=== PATIENT | female | born 1960 | race Caucasian/White ===

== ENCOUNTER 2017-01-22 12:21 | Emergency (ER) | payer BC ==
--- NOTE | 2017-01-22 12:39 | ERNOTE ---
Medical Problem HPI - Narrative Date of Service: 01/22/17 - General Chief Complaint: General Assessment Time Seen by Provider: 01/22/17 12:37 Source: patient, RN notes reviewed Exam Limitations: no limitations - Immun/Allergies/Home Medications Immunizations: IMMUNIZATION HX History of Influenza Vaccine Yes Hx Pneumococcal Vaccination No Allergies/Adverse Reactions: Allergies No Known Allergies Allergy (Unverified 01/22/17 12:31) Home Medications: HOME MEDICATIONS Carvedilol [Coreg] 6.25 mg PO BID 01/22/17 [Last Taken Unknown] Codeine Phosphate/Guaifenesin [Guaifenesin-Codeine Syrup] 10 ml PO Q4H PRN #120 ml 01/22/17 [Last Taken Unknown] Flecainide Acetate [Tambocor] 50 mg PO BID 01/22/17 [Last Taken Unknown] traZODone HCL [Trazodone HCl] 100 mg PO HS 01/22/17 [Last Taken Unknown] - History of Present History Narrative: Tonja is a 56 year old female ambulatory to the ED for symptoms that she believes are due to a "mold exposure." She was shoveling mulch approximately 2 weeks ago that had molded. Since then, she has had intermittent dizziness and a cough. She also reports that she has had a bad taste in her mouth that began 3 days ago. Review of Systems - Review of Systems Constitutional: Present: chills, diaphoresis, fatigue, malaise EYE: Present: no symptoms reported ENT: Absent: ear pain, nose congestion, nasal drainage, sore throat Respiratory: Present: cough. Absent: shortness of breath, orthopnea, wheezing, stridor Cardiology: Absent: chest pain, syncope Gastrointestinal/Abdominal: Absent: nausea, abdominal pain Genitourinary: Present: no symptoms reported Musculoskeletal: Present: no symptoms reported Skin: Absent: rash, lesions Neurological: Present: dizziness/light-headedness. Absent: headache, weakness, numbness Endocrine: Present: no symptoms reported Hematologic/Lymphatic: Present: no symptoms reported Psych: Present: no symptoms reported - Patient's Past Medical History Patient History - Medical: No pertinent hx Patient History - Cardiac/Respiratory: Arrhythmias, Hyperlipidemia Patient History - Cancer: No Hx of Cancer Patient History - Surgical Procedures: , Hysterectomy, Pacemaker, Other - Cardiac ablation Patient History - Other: None - Social History Living Situations: home Psych History: No pertinent hx Smoking Status: Never smoker Alcohol Use: none Drug Use: none - Immunizations Hx Pneumococcal Vaccination: No History of Influenza Vaccine: Yes Physical Exam - Physical Exam General Appearance: Present: alert, no apparent distress, thin, other - appropriately dressed/groomed Ears, Nose, Throat: Present: normal pharynx. Absent: abnormal TM (R), abnormal TM (L), nasal congestion, sinus pain/drainage, pharyngeal erythema, pharyngeal swelling Neck: Present: normal inspection, nontender, supple, full range of motion. Absent: lymphadenopathy (R), lymphadenopathy (L) Respiratory: Present: no respiratory distress, normal breath sounds, no accessory muscle use, lungs clear Cardiovascular/Chest: Present: regular rate, rhythm, no murmur, normal peripheral pulses Extremity Exam: Present: normal inspection, normal range of motion Neurological Exam: Present: alert, oriented, no motor/sensory deficits, other - flat affect, depressed appearing. Absent: normal mood/affect Skin Exam: Present: normal color, warm/dry ED Progress - Results and Orders Patient's Lab Results:: I have reviewed the patient's lab results. - Vital Signs Patient's Vital Signs:: I have reviewed the patient's vital signs. Vital Signs: Vital Signs 01/22/17 12:23 Pulse Rate 76 Respiratory 12 Rate Blood Pressure 170/89 O2 Sat by Pulse 100 Oximetry - X-Ray X-Ray #1 X-Ray: chest Interpretation: Interp. by me X-ray Comments: No consolidation or infiltrate noted, pacemaker in place, increased pulmonary vascular markings - Progress/Reassessment Chief Complaint: General Assessment Progress:: Unchanged Departure - Departure Clinical Impression: Bronchitis, acute Qualifiers: Bronchitis organism: unspecified organism Qualified Code(s): J20.9 - Acute bronchitis, unspecified Disposition: Home Follow Up Needed Condition: Stable Instructions: Acute Bronchitis, [id number] Additional Instructions: Cough medication will likely cause drowsiness Follow up with your doctor if symptoms have not improved in 1 week, or return to ER if symptoms worsen Referrals: Curtis Chaudhary DO [Non Staff Physicians] - Prescriptions: Codeine Phosphate/Guaifenesin [Guaifenesin-Codeine Syrup] 10 ml PO Q4H PRN #120 ml PRN Reason: Cough
[2017-01-22 13:05] LABS: Hematocrit 38.5 % (37.0-47.0); Hemoglobin 12.6 gm/dL (12.5-16.0); Mean Corpuscular Hemoglobin 29.4 pg (27-31); Mean Corpuscular Hgb Conc 32.7 g/dl (32-36); Mean Platelet Volume 9.5 fl (6.0-9.5); Neutrophil % 79.7 % (42-75.0); Platelet Count 262 K/mm3 (150-450); Red Blood Count 4.28 M/mm3 (4.2-5.4); Red Cell Distribution Width 12.6 % (11.5-14.0); White Blood Count 8.8 K/mm3 (4.0-10.5)
--- OUTSIDE RECORDS SUMMARY | 2017-01-22 13:08 | XMS REPORT | Continuity of Care Document ---
:1960 Author Organization [employer] [place] [address] Care Team Providers Name Role Phone Curtis Chaudhary Primary Care Provider [phone] Source Comments This disclosure is being made pursuant to the [employer] program and maynot contain all information available regarding this patient.[employer] Active Allergies and Adverse Reactions No Known Allergies Current Medications Be aware that medications may not be up to date as of this document. Alwaysverify current medications with the patient. Prescription Sig. Disp. Refills Start Date End Date Status aspirin 81 MG EC tablet Take 81 mg by Active mouth daily. carvedilol (COREG) 3.125 Take 3.125 mg by Active MG tablet mouth 2 (two) times daily with meals. flecainide (TAMBOCOR) 100 Take 50 mg by Active MG tablet mouth 2 (two) times daily. lisinopril Take 2.5 mg by Active (PRINIVIL,ZESTRIL) 2.5 MG mouth daily. tablet melatonin 5 MG TABS tablet Take 5 mg by mouth Active nightly. Active Problems Not on file Social History Tobacco Use Types Packs/Day Years Used Date Never Smoker Smokeless Tobacco: Never Used Last Filed Vital Signs Vital Sign Reading Time Taken Blood Pressure 120/82 11/30/2015 10:58 AM CDT Pulse 76 11/30/2015 10:58 AM CDT Temperature - - Respiratory Rate - - Height 1.778 m (5' 10") 06/03/2013 2:25 PM CDT Weight 53.524 kg (118 lb) 11/30/2015 10:58 AM CDT Body Mass Index 16.93 11/30/2015 10:58 AM CDT Oxygen Saturation - - Plan of Care Patient Goal Type Goal Blood Pressure Blood Pressure below 140/90 Health Maintenance Due Date Last Done Comments Hepatitis C Screening 1976 Tetanus/Pertussis (1 - Tdap) 1977 Pap Smear 12/10/1979 Colonoscopy 2008 Mammogram 2008 Well Adult Visit 2008 Influenza Immunization (#1) 2016 Results from Last 3 Months Not on file
[2017-01-22 13:17] LABS: Albumin * 3.4 gm/dl (3.4-5.0); Anion Gap 10.1 mmol/L (6.8-13.8); Bilirubin, Total 0.4 mg/dL (0.0-1.1); Ca. Corrected For Albumin 9.1 mg/dL (8.4-10.2); Calcium * 8.9 mg/dL (7.9-10.9); Carbon Dioxide 31.1 mmol/L (24-32.6); Potassium 4.2 mmol/L (3.4-4.6); Total Protein 7.4 gm/dL (6.2-8.2)
[2017-01-22 13:52] VITALS: BP 142/80
== END 2017-01-22 13:54 | disposition home or self-care (01) ==
LOC: ER 12:21
DX: J20.9 Acute bronchitis, unspecified (principal); E78.5 Hyperlipidemia, unspecified